=== PATIENT | male | born 1980 | race Asian ===

== ENCOUNTER 2019-12-04 18:12 | Emergency (ER) | payer OTHER, SELFPAY ==
[~2019-12-04] VITALS: Ht 180.3 cm; Wt 114.4 kg
[2019-12-04 19:31] LABS: MONO REFLEX EBV COMP NEGATIVE (NEGATIVE)
[2019-12-04] MEDS ORDERED: AZIT500T5 PO (19:37)
[2019-12-04] MEDS ORDERED: AZITHROMYCIN 250MG TABLET PO ONE (19:45)
[2019-12-04 19:47] VITALS: BP 132/76
[2019-12-07 18:13] LABS: EBV AB TO NUCLEAR ANTIGEN 73.3 U/mL (0.0-17.9); EBV VIRAL CAPSID AG IgM <36.0 U/mL (0.0-35.9)
== END 2019-12-04 19:50 | disposition home or self-care (01) ==
LOC: M ED 18:12
DX: J02.0 Streptococcal pharyngitis (principal); Z72.0 Tobacco use; F12.10 Cannabis abuse, uncomplicated; Z88.0 Allergy status to penicillin